=== PATIENT | male | born 1945 | race Caucasian/White ===

== ENCOUNTER 2020-05-16 12:50 | Emergency (ER) | payer OTHER, MEDICARE ==
[~2020-05-16] VITALS: Ht 177.8 cm; Wt 63.0 kg
[~2020-05-16 12:50] MED LIST: POLY17PO5 PO; TRAM50TA2 PO
--- NOTE | 2020-05-16 12:52 | NUR ---
no answer when called from lobby.
--- NOTE | 2020-05-16 14:02 | NUR ---
room cleaner note: Pt to room from lobby.
[2020-05-16 15:01] LABS: BASOPHILS % (AUTO) 1 % (0-1); EOSINOPHILS % (AUTO) 6 % (1-7); LYMPHOCYTES % (AUTO) 17 % (22-44); MEAN CORPUSCULAR HEMOGLOBIN 31.3 pg (27.5-34.5); MEAN CORPUSCULAR HGB CONC 33.5 g/dL (33.2-36.2); MEAN PLATELET VOLUME 7.4 fL (7.4-10.4); MONOCYTES % (AUTO) 11 % (2-9); NEUTROPHILS % (AUTO) 66 % (42-75); PLATELET COUNT 277 x10^3/uL (130-400); RED CELL DISTRIBUTION WIDTH 14.7 % (9.4-14.8)
[2020-05-16 15:05] LABS: MD NO
[2020-05-16 15:06] VITALS: BP 155/79
[2020-05-16 15:11] LABS: ALANINE AMINOTRANSFERASE 25 U/L (12-78); ALBUMIN 3.4 g/dL (3.4-5.0); ANION GAP 3 mmol/L (5-15); CALCIUM 8.6 mg/dL (8.5-10.1); CHLORIDE 112 mmol/L (98-107); CREATININE 1.14 mg/dL (0.7-1.3)
[2020-05-16 15:15] LABS: ALKALINE PHOSPHATASE 55 U/L (45-117); BILIRUBIN,TOTAL 0.5 mg/dL (0.2-1.0); TOTAL PROTEIN 6.6 g/dL (6.4-8.2); TROPONIN I < 0.015 ng/mL (0.000-0.045)
--- NOTE | 2020-05-16 15:16 | NUR ---
PT RESTING. FAMILY AT BEDSIDE.
== END 2020-05-16 16:13 | disposition home or self-care (01) ==
LOC: ED 14:13
DX: R42 Dizziness and giddiness (principal); R55 Syncope and collapse; I51.7 Cardiomegaly; R07.9 Chest pain, unspecified; Z85.038 Personal history of other malignant neoplasm of large intestine
CPT/HCPCS: 36415; 71045; 80053; 84484; 85025; 93005; 99285